=== PATIENT | female | born 1990 | race Caucasian/White ===

== ENCOUNTER 2019-01-22 13:30 | Observation (INO) | payer BC ==
[2019-01-22] MEDS ORDERED: MIDAZOLAM HCL 2 MG/2 ML INJ ONE (15:24)
[2019-01-22] MEDS ORDERED: PROPOFOL 200 MG/20 ML VIAL IV ONE (15:24)
[2019-01-22] MEDS ORDERED: LIDOCAINE 2% MPF 5 ML VIAL ONE (15:25)
[2019-01-22] MEDS ORDERED: GLYCOPYRROLATE 0.2 MG/ML SYR ONE ×3 (15:25→16:17)
[2019-01-22] MEDS ORDERED: FENTANYL CITR 250 MCG/5 ML ONE (15:25)
[2019-01-22] MEDS ORDERED: NEOSTIGMINE 1 MG/ML -10 ML VIAL ONE (15:26)
[2019-01-22] MEDS ORDERED: ONDANSETRON 4 MG/2 ML VIAL ONE (15:26)
[2019-01-22] MEDS ORDERED: CEFAZOLIN/SWI 1gm 1 GM/10 ML SYR ONE (15:31)
[2019-01-22] MEDS ORDERED: KETOROLAC 30 MG/ML INJ ONE (16:10)
[2019-01-22] MEDS ORDERED: ONDANSETRON 4 MG/2 ML VIAL IV PRN (16:12)
[2019-01-22] MEDS ORDERED: SODIUM CHLORIDE 0.9% 10ML INJ IV PRN (16:12)
[2019-01-22] MEDS ORDERED: BUPIVACAINE 0.5% PF 10 ML VIAL ONE (16:18)
--- OUTSIDE RECORDS SUMMARY | 2019-01-22 16:28 | XMS REPORT ---
:1990 Author Organization eClinicalWorks Care Team Providers Name Role Phone Debbie Owens Provider Role Unavailable Allergies No Known Allergies Problems Problem Type Condition Code Onset Dates Condition Status Problem Irritable bowel syndrome with both K58.2 Active constipation and diarrhea Problem Migraine with aura and without G43.109 Active status migrainosus, not intractable Problem Sleep disturbance G47.9 Active Assessment Acute UTI N39.[address] of the abdomen R93.5 Active Problem Acute UTI N39.0 Active Problem Neck pain M54.2 Active Problem Pelvic pressure in female R10.2 Active Problem Pain in extremity, unspecified M79.609 Active extremity Problem Acute right-sided low back pain M54.5 Active without sciatica Problem Abdominal pain, unspecified R10.9 Active abdominal location Medications Medication Code Code Instructions Start End Status Dosage System Date Date Zyrtec Allergy ND 83499442035 10 MG Orally Active 1 tablet Once a day Sumatriptan ND 15895585419 50 MG Orally October 14, Active 1 tablet Succinate Twice a day 2018 as needed Benadryl NDC 0 orally 1-2 Active 50mg times a day Topiramate ND 71115424427 100 MG Orally Active 1 tablet Once a day Results No Known Results Summary Purpose eClinicalWorks Submission
--- OUTSIDE RECORDS SUMMARY | 2019-01-22 16:28 | XMS REPORT ---
:1990 Author Organization eClinicalWorks Care Team Providers Name Role Phone Debbie Owens Provider Role Unavailable Allergies, Adverse Reactions, Alerts Substance Reaction Event Type N.K.D.A. Info Not Available Non Drug Allergy Problems Problem Type Condition Code Onset Dates Condition Status Problem Irritable bowel syndrome with both K58.2 Active constipation and diarrhea Problem Migraine with aura and without G43.109 Active status migrainosus, not intractable Problem Sleep disturbance G47.[address] of the abdomen R93.5 Active Problem Acute UTI N39.0 Active Problem Neck pain M54.2 Active Problem Pelvic pressure in female R10.2 Active Problem Pain in extremity, unspecified M79.609 Active extremity Problem Acute right-sided low back pain M54.5 Active without sciatica Problem Abdominal pain, unspecified R10.9 Active abdominal location Assessment Neck pain M54.2 Active Assessment Pain in extremity, unspecified M79.609 Active extremity Assessment Pelvic pressure in female R10.2 Active Assessment Acute UTI N39.0 Active Assessment Acute right-sided low back pain M54.5 Active without sciatica Assessment Abdominal pain, unspecified R10.9 Active abdominal location Assessment Abnormal CT of the abdomen R93.5 Active Medications Medication Code Code Instructions Start End Status Dosage System Date Date Zyrtec Allergy [facility] 13681846791 10 MG Orally Active 1 tablet Once a day Topiramate [facility] 65984940308 100 MG Orally Active 1 tablet Once a day Benadryl NDC 0 orally 1-2 Active 50mg times a day Ciprofloxacin HCl ND 49704838258 500 MG Orally Aug 27, Sep 06, Active 1 tablet every 12 hrs 2018 2018 Sumatriptan ND 80623073962 50 MG Orally September Active 1 tablet Succinate Twice a day 2017 as needed Results Name Result Date Reference Range Unit Abnormality Flag CULTURE, URINE, ROUTINE ----CULTURE, URINE, ROUTINE SEE NOTE [id number] Summary Purpose eClinicalWorks Submission
--- OUTSIDE RECORDS SUMMARY | 2019-01-22 16:28 | XMS REPORT ---
:1990 [facility] Team Providers Name Role Phone Debbie Owens Provider Role Unavailable Allergies, Adverse Reactions, Alerts Substance Reaction Event Type N.K.D.A. Info Not Available Non Drug Allergy Problems Problem Type Condition Code Onset Dates Condition Status Problem Acute right-sided low back pain M54.5 Active without sciatica Problem Pelvic pressure in female R10.2 Active Problem Pain in extremity, unspecified M79.609 Active extremity Problem Right sided abdominal pain R10.9 Active Assessment Diarrhea, unspecified type R19.7 Active Problem Abnormal urinalysis R82.90 Active Assessment Abnormal urinalysis R82.90 Active Assessment Depression screening Z13.31 Active Problem Abnormal abdominal CT scan R93.5 Active Problem Depression screening Z13.31 Active Problem Abdominal pain, unspecified R10.9 Active abdominal location Problem Nausea without vomiting R11.0 Active Problem Diarrhea, unspecified type R19.7 Active Assessment Right sided abdominal pain R10.9 Active Assessment Nausea without vomiting R11.0 Active Assessment Abnormal abdominal CT scan R93.5 Active Problem Migraine with aura and without G43.109 Active status migrainosus, not intractable Problem Abnormal CT of the abdomen R93.5 Active Problem Irritable bowel syndrome with both K58.2 Active constipation and diarrhea Problem Neck pain M54.2 Active Problem Sleep disturbance G47.9 Active Problem Acute UTI N39.0 Active Medications Medication Code Code Instructions Start End Status Dosage System Date Date Dicyclomine HCl ND 29320937718 20 MG Orally January 13January Active 1 tablet Four times a day 2018, as needed 2018 for stomach/f lank pain Zyrtec Allergy ND 41988302838 10 MG Orally Active 1 tablet Once a day Topiramate ND 57194614322 100 MG Orally Active 1 tablet Once a day Sumatriptan ND 14948868746 50 MG Orally October 14, Active 1 tablet Succinate Twice a day 2017 as needed Benadryl ND 0 orally 1-2 Active 50mg times a day Results Name Result Date Reference Range Unit Abnormality Flag URINALYSIS AUTO W/O SCOPE ----Bilirubin Negative 20190113 ----Urobilinogen (mg/dL) 0.2 E.U./dL 20190113 ----Ketones Negative 20190113 ----Glucose (mg/dL) Negative 20190113 ----Protein (mg/dL) 1+ 20190113 ----Specific [place] 1.015 20190113 ----Blood (Non-Hemolyzed) Negative 20190113 ----pH 7.5 20190113 ----Leukocytes 1+ 20190113 ----Nitrite Negative 20190113 TEST URINE ----RESULTS Negative 20190113 Summary Purpose eClinicalWorks Submission
--- OUTSIDE RECORDS SUMMARY | 2019-01-22 16:28 | XMS REPORT ---
:1990 Author Organization eClinicalWorks Care Team Providers Name Role Phone Graciela Debbie Provider Role Unavailable Allergies No Known Allergies [...] pain, unspecified R10.9 Active abdominal location Medications No Known Medications Results No Known Results Summary Purpose eClinicalWorks Submission
--- OUTSIDE RECORDS SUMMARY | 2019-01-22 16:29 | XMS REPORT ---
[...] Problem Right sided abdominal pain R10.9 Active Problem Abnormal urinalysis R82.90 Active Problem Abnormal abdominal CT scan R93.5 Active Problem Depression screening Z13.31 Active Problem Abdominal pain, unspecified R10.9 Active abdominal location Problem Nausea without vomiting R11.0 Active Problem Diarrhea, unspecified type R19.7 Active Problem Migraine with aura and without G43.109 Active status migrainosus, not intractable Problem Abnormal CT of the abdomen R93.5 Active Problem Irritable bowel syndrome with both K58.2 Active constipation and diarrhea Problem Neck pain M54.2 Active Problem Sleep disturbance G47.9 Active Problem Acute UTI N39.0 Active Medications No Known Medications Results No Known Results Summary Purpose [employer] Submission
[2019-01-22] MEDS ORDERED: MEPERIDINE HCL 50 MG/ML AMP ONE (16:40)
[2019-01-22] MEDS ORDERED: NA CHLORIDE 0.9% 1,000 ML ONE (16:51)
[2019-01-22] MEDS: NA CHLORIDE 0.9% 1,000 ML IV SCH (17:00)
--- NOTE | 2019-01-22 17:02 | OP ---
Date of Procedure: 01/22/2019 Surgeon: Rohan Ferrer MD Preoperative Diagnosis: Acute appendicitis. Postoperative Diagnosis: Acute appendicitis. Procedure: Laparoscopic appendectomy. Anesthesia: General plus local. Findings: Acute appendicitis. Also, uterine masses. Indications: This is a case of a 28-year-old patient, comes to us with chronic pain, but in the last 24 hours she developed right lower quadrant acute pain, diagnosed with acute appendicitis. Transfer red from another institution for emergent surgery. The benefits, alternatives, and risks of laparosc opic, possible open appendectomy fully explained to the patient, which include but are not limited to infection, bleeding, damage to adjacent structures, anesthesia complication, AR, and even . Evelyn vinson also understands this may not relieve the symptoms. She might need more than one surgical interven tion. She understood, signed the consent. Description Of Procedure: The patient was brought to the operating room, placed in supine position. Anesthesia was done without complication. A time-out was called. Abdominal area was prepped and dr aped in a sterile fashion. Marcaine 0.5% was injected for local anesthetic, followed by a sharp inci tiara of the skin in the infraumbilical region. Incision was carried down to fascia, which was opened under direct vision. Peritoneum was encountered, opened under direct vision. Vicryl #1 placed insi de the fascia. Judy trocar was carefully introduced. Pneumoperitoneum was obtained. I placed 2 m ore trocars, 5 mm each one of them, and suprapubic and left lower quadrant under direct visualization . This allowed me to introduce camera in the abdomen and visualized the area of the appendix, it loo ks like the half of the appendix is inflamed, the base of the appendix seems to be intact, so we crea franky a window in the base of the appendix, transected that with an Endo MARSHA 45 mm 3.5, and the mesoapp endix with Endo MARSHA 45 mm 2.5. Appendix removed from abdominal cavity using EndoCatch through the um bilical incision. The area was inspected once again after irrigation and suction. Stump is intact w ith no leakage and no bleeding. I have to mention that we inspected the area of the right side of th e colon too since the patient has chronic pain. We did not see any extraluminal masses, but we notice d several fibroid masses in the uterus, etiology of that is unknown, one of them is almost the size o f the uterus. We took several pictures for her to show to the senior warehouse clerk. Small bowel with no ext raluminal masses. At that moment, I proceeded to remove the trocars under direct vision. Deflated t he pneumoperitoneum. Closed the fascia with #1 Vicryl. Irrigated subcutaneous tissue, closed that w ith 3-0 chromic and skin with félix. Sponge count and instrument counts were correct. The patient tolerated the procedure well. The patient was sent to Recovery in stable condition. JOSE/NAYE Voice ID: [id number] Report ID: [id number]
[2019-01-22] MEDS ORDERED: CEFOXITIN 1 GM in NA CHLORIDE 0.9% 100 ML IVPB SCH (18:00)
[2019-01-22] MEDS: HYDROCODONE/APAP 7.5/325 MG TAB PO PRN (18:32)
[2019-01-22 18:51] VITALS: BMI 51.3
[2019-01-22] MEDS: CEFOXITIN/SWI 1gm 1 GM/10 ML SYR IVP SCH (18:52)
[2019-01-22] MEDS ORDERED: SUMATRIPTAN SUCCI 50 MG TAB PO PRN (18:56)
[2019-01-22] MEDS ORDERED: CEFOXITIN/SWI 1gm 1 GM/10 ML SYR IVP SCH (19:00)
[2019-01-22] MEDS: PROPRANOLOL HCL 40 MG TAB PO SCH (21:00)
[2019-01-22] MEDS: MORPHINE 2 MG/ML SYR IV PRN (21:14)
[2019-01-23] MEDS: MORPHINE 2 MG/ML SYR IV PRN ×3 (01:00→09:46)
[2019-01-23] MEDS: CEFOXITIN/SWI 1gm 1 GM/10 ML SYR IVP SCH ×2 (01:01→05:32)
[2019-01-23] MEDS: NA CHLORIDE 0.9% 1,000 ML IV SCH ×2 (03:00→13:00)
--- NOTE | 2019-01-23 03:04 | HP ---
Date of Admission: 01/22/2019 Diagnoses: Right lower quadrant pain intractable, acute appendicitis. History Of Present Illness: This is the case of a 28-year-old patient, comes with a history of abdom inal pain since last night on the right side associated with nausea, vomiting, and bloating. The pat demond was seen in [place] across the street, did the initial workup. Had a CT scan done showing acut e appendicitis and I was called for transferring this patient to our service and also immediate surge ry. She denies any dysuria, hematuria, hematochezia, or melena. Denies any recent traveling out of the country. Denies any family member sick at home. The patient states having abdominal pain in the right side for the last 6 months. She even have an appointment with a apparel pattern maker next month , but she has not been seen yet, but this pain got worse suddenly, and she decided to come to the ER and then the appendicitis was discovered. Past Medical History: Migraine. Medications: For migraines. Allergies: NONE. Surgeries: None. Social History: She does smoke. She does not drink alcohol. Review of Systems: Ten points, otherwise unremarkable. Physical Examination: General: The patient is awake and alert. HEENT: Pupils are equal and reactive, anicteric. Neck: Supple. Chest: Clear. Heart: S1, S2. Abdomen: Soft and depressible. The right lower quadrant tenderness with Rovsing sign and psoas sign positive. Breasts: Deferred. Pelvic: Deferred. Rectal: Deferred. Extremities: Good capillary refill. Neuro: Cranial nerves 2 through 12 grossly within normal limits. Laboratory Data: Blood work was done in [place] with a white count of 14.6, platelets of 389. Pregnan cy negative. She has a right upper quadrant ultrasound with no gallstones seen. Then she has a CAT scan of the abdomen and pelvis, shows acute appendicitis. Assessment: This is a 28-year-old patient with acute appendicitis, laparoscopic, possible open appen dectomy. Fully discussed with the patient with benefits, alternatives, and risks including but not l imited to infection, bleeding, damage to adjacent structures, anesthesia complication, negative appen matthew, myocardial infarction, and even . She also understands this may not relieve any symptoms. She might need more than one surgical intervention. She also understands that she should continue w ith the workup with the apparel pattern maker because may be that some other conditions in the colon is causing her chronic abdominal pain and the appendix not necessarily will take care of that pathology. She understood and she will keep her appointment and the OR was immediately called stat for surgery . JAYDA Voice ID: [id number]
[2019-01-23 04:18] VITALS: O2SAT 98
[2019-01-23 05:59] LABS: Urine Appearance CLEAR; Urine Bilirubin NEGATIVE (NEG); Urine Blood NEGATIVE (NEG); Urine Color YELLOW; Urine Glucose NEGATIVE (NEG); Urine Protein NEGATIVE (NEG); Urine Specific Gravity 1.015 (1.005-1.030); Urine Urobilinogen 0.2 mg/dL (0.2-1.0); Urine pH 6.5 (5.0-7.0)
[2019-01-23 06:00] LABS: Urine Microscopic Reflex ORDER UMIC
[2019-01-23 06:10] LABS: Absolute Lymphocytes (CBC) 1.4 K/uL (0.7-4.9); Basophils % 0.8 % (0-1.3); Eosinophils % 6.2 % (0-4.4); Hematocrit 32.2 % (36.0-45.0); Lymphocytes % 16.5 % (15.3-44.8); MPV 8.3 fL (7.6-11.3); Monocytes % 2.4 % (3.3-12.3); RBC Red Blood Cell Count 3.72 M/uL (3.86-4.86)
[2019-01-23 06:16] LABS: Potassium 3.7 mmol/L (3.5-5.1)
[2019-01-23 07:42] LABS: Urine Bacteria <20 /HPF (<20); Urine Culture Reflex Order NOT NEEDED; Urine RBC <5 /HPF (NONE SEEN)
[2019-01-23] MEDS: PROPRANOLOL HCL 40 MG TAB PO SCH (08:41)
[2019-01-23] MEDS ORDERED: PANTOPRAZOLE 40 MG INJ IVP SCH (09:00)
[2019-01-23] MEDS: HYDROCODONE/APAP 7.5/325 MG TAB PO PRN (12:23)
[2019-01-23 12:38] VITALS: BP 119/68; TEMP 97.8
--- NOTE | 2019-01-23 12:52 | P.DS ---
Admission Date: 01/22/19 Discharge Date: 01/23/19 Disposition: ROUTINE DISCHARGE Discharge Condition: GOOD Vital Signs/Physical Exam: Temp Pulse Resp BP Pulse Ox 97.8 F 59 20 119/68 99 01/23/19 12:00 01/23/19 12:00 01/23/19 12:00 01/23/19 12:00 01/23/19 12:00 General: Alert, Oriented x3, Cooperative HEENT: PERRLA, EOMI Neck: Supple Respiratory: Normal air movement Gastrointestinal: Soft and benign Musculoskeletal: No erythema, No tenderness, No warmth Integumentary: No erythema, No warmth, No cyanosis Laboratory Data at Discharge: WBC 8.3 K/uL (4.3-10.9) 01/23/19 05:38 Hgb 10.9 g/dL (12.0-15.0) L 01/23/19 05:38 Hct 32.2 % (36.0-45.0) L 01/23/19 05:38 Plt Count 268 K/uL (152-406) 01/23/19 05:38 Sodium 139 mmol/L (136-145) 01/23/19 05:38 Potassium 3.7 mmol/L (3.5-5.1) 01/23/19 05:38 BUN 8 mg/dL (7-18) 01/23/19 05:38 Creatinine 1.33 mg/dL (0.55-1.3) H 01/23/19 05:38 Glucose 104 mg/dL (74-106) 01/23/19 05:38 Home Medications: Propranolol [Inderal] 40 mg PO BID 01/22/19 SUMAtriptan succinate [Sumatriptan Succinate] 25 mg PO ONCE PRN 01/22/19 Amox/Clavulanate [Augmentin 875-125 Tab] 1 each PO BID #12 tab 01/23/19 Codeine/APAP [Tylenol W/Codeine #3 tab] 1 tab PO Q4HP PRN #30 tab 01/23/19 New Medications: Amox/Clavulanate [Augmentin 875-125 Tab] 1 each PO BID #12 tab Codeine/APAP [Tylenol W/Codeine #3 tab] 1 tab PO Q4HP PRN #30 tab PRN Reason: Pain Patient Discharge Instructions: KEep area dry for 24h then may remove dressing and shower. Diet: AHA Activity: No lifting more than 10 lbs Followup: Rohan Ferrer MD [ACTIVE - CAN ADMIT] - 1 Week
[2019-01-23] MEDS ORDERED: CEFOXITIN/SWI 1gm 1 GM/10 ML SYR IVP SCH (19:00)
== END 2019-01-23 14:36 | disposition home or self-care (01) ==
LOC: 4TH 13:50
PROVIDERS: ADMIT Surgery; ATTEND Surgery
PROC: 0DTJ4ZZ Resection of Appendix, Percutaneous Endoscopic Approach (ICD-10-PCS; principal; 2019-01-22 13:30)
DX: K35.80 Unspecified acute appendicitis (principal); D25.9 Leiomyoma of uterus, unspecified
CPT/HCPCS: 36415; 80048; 81003; 81015; 85025; 88304; C9113; G0378; J0690; J2175; J2250; J2270; J2405; J2704; J2710; J3010; J7030

== ENCOUNTER 2019-04-06 06:20 | Day surgery (SDC) | payer BC ==
[2019-03-30 16:40] LABS: Basophils % 0.5 % (0-1.3); Hematocrit 42.8 % (36.0-45.0); Lymphocytes % 27.5 % (15.3-44.8); MPV 9.4 fL (7.6-11.3); RBC Red Blood Cell Count 4.88 M/uL (3.86-4.86)
[2019-03-30 17:15] LABS: Urine Appearance CLOUDY; Urine Bilirubin NEGATIVE (NEG); Urine Blood 2+ (NEG); Urine Color YELLOW; Urine Glucose NEGATIVE (NEG); Urine Protein TRACE (NEG); Urine Specific Gravity 1.025 (1.005-1.030); Urine Urobilinogen 0.2 mg/dL (0.2-1.0); Urine pH 5.5 (5.0-7.0)
[2019-03-30 17:46] LABS: Urine Microscopic Reflex ORDER UMIC
[2019-03-30 17:47] LABS: Urine Bacteria 20-50 /HPF (<20); Urine Culture Reflex Order REFLEXED; Urine RBC <5 /HPF (NONE SEEN)
--- OUTSIDE RECORDS SUMMARY | 2019-04-06 06:26 | XMS REPORT ---
[...] Dosage System Date Date Zyrtec Allergy ND 98204789815 10 MG Orally Active 1 tablet Once a day Sumatriptan ND 05820569708 50 MG Orally October 14, Active 1 tablet Succinate Twice a day 2018 as needed Benadryl NDC 0 orally 1-2 Active 50mg times a day Topiramate ND 86655392109 100 MG Orally Active 1 tablet Once a day Results No Known Results Summary Purpose eClinicalWorks Submission
--- OUTSIDE RECORDS SUMMARY | 2019-04-06 06:26 | XMS REPORT ---
[...] Medications Results No Known Results Summary Purpose [employer] Submission
--- OUTSIDE RECORDS SUMMARY | 2019-04-06 06:26 | XMS REPORT ---
[...] Acute UTI N39.0 Active Medications Medication Code System Code Instructions Start Date End Date Status Dosage Zofran [facility] 47066937800 4 MG Orally q 4-6 January 22, Active 1 tablet hours prn nausea 2019 Results No Known Results Summary Purpose [employer] Submission
--- OUTSIDE RECORDS SUMMARY | 2019-04-06 06:26 | XMS REPORT ---
:1990 [facility] Team Providers Name Role Phone Debbie [...] Dosage System Date Date Dicyclomine HCl ND 76894083536 20 MG Orally January 13January Active 1 tablet Four times a day 2018, as needed 2018 for stomach/f lank pain Zyrtec Allergy ND 13045241298 10 MG Orally Active 1 tablet Once a day Topiramate ND 50342902595 100 MG Orally Active 1 tablet Once a day Sumatriptan ND 80712889104 50 MG Orally October 14, Active 1 tablet Succinate Twice a day 2017 as needed Benadryl ND 0 orally 1-2 Active 50mg times a day Results Name Result Date Reference Range Unit Abnormality Flag URINALYSIS AUTO W/O SCOPE ----Bilirubin Negative 20190113 ----Urobilinogen (mg/dL) 0.2 E.U./dL 20190113 ----Ketones Negative 20190113 ----Glucose (mg/dL) Negative 20190113 ----Protein (mg/dL) 1+ 20190113 ----Specific [place] 1.015 20190113 ----Blood (Non-Hemolyzed) Negative 20190113 ----pH 7.5 20190113 ----Leukocytes 1+ 20190113 ----Nitrite Negative 20190113 TEST URINE ----RESULTS Negative 20190113 Summary Purpose eClinicalWorks Submission
--- OUTSIDE RECORDS SUMMARY | 2019-04-06 06:26 | XMS REPORT ---
[...] Problem Diarrhea, unspecified type R19.7 Active Assessment URI, acute J06.9 Active Assessment Acute pharyngitis, unspecified J02.9 Active etiology Problem Migraine with aura and without G43.109 Active status migrainosus, not intractable Problem Abnormal CT of the abdomen R93.5 Active Problem Irritable bowel syndrome with both K58.2 Active constipation and diarrhea Problem Neck pain M54.2 Active Problem Sleep disturbance G47.9 Active Problem Acute UTI N39.0 Active Medications Medication Code Code Instructions Start End Status Dosage System Date Date Sumatriptan [facility] 08900964806 50 MG Orally September Active 1 tablet Succinate Twice a day 2017 as needed Zyrtec Allergy [facility] 26959089067 10 MG Orally Active 1 tablet Once a day Zofran ND 78363846189 4 MG Orally q January 22, Active 1 tablet 4-6 hours prn 2018 nausea Solifenacin [facility] [address]-79 5 MG Orally Active 1 tablet Succinate Once a day Benadryl NDC 0 orally 1-2 Active 50mg times a day Topiramate [facility] 52176324039 100 MG Orally Active 1 tablet Once a day Results No Known Results Summary Purpose eClinicalWorks Submission
--- OUTSIDE RECORDS SUMMARY | 2019-04-06 06:26 | XMS REPORT ---
[...] Status Dosage System Date Date Zyrtec Allergy [facility] 11640205872 10 MG Orally Active 1 tablet Once a day Topiramate [facility] 33209677982 100 MG Orally Active 1 tablet Once a day Benadryl NDC 0 orally 1-2 Active 50mg times a day Ciprofloxacin HCl ND 89258861112 500 MG Orally Aug 27, Sep 06, Active 1 tablet every 12 hrs 2018 2018 Sumatriptan ND 41084531192 50 MG Orally September Active 1 tablet Succinate Twice a day 2017 as needed Results Name Result Date Reference Range Unit Abnormality Flag CULTURE, URINE, ROUTINE ----CULTURE, URINE, ROUTINE SEE NOTE [id number] Summary Purpose eClinicalWorks Submission
[2019-04-06] MEDS ORDERED: Ringers Lactate 1,000 ML IV ONE ×3 (06:41→10:13)
[2019-04-06] MEDS ORDERED: SCOPOLAMINE HYDROBROMIDE PATCH TD ONE (06:41)
[2019-04-06 06:42] LABS: Specific Gravity 1.025 (1.005-1.030)
[2019-04-06] MEDS ORDERED: PROPOFOL 200 MG/20 ML VIAL IV ONE (07:13)
[2019-04-06] MEDS ORDERED: MIDAZOLAM HCL 2 MG/2 ML INJ ONE (07:13)
[2019-04-06] MEDS ORDERED: ROCURONIUM 50 MG/5 ML VIAL IV ONE ×2 (07:13→08:45)
[2019-04-06] MEDS ORDERED: FENTANYL CITR 250 MCG/5 ML ONE (07:13)
[2019-04-06] MEDS ORDERED: dexAMETHasone 10 MG/ML VIAL ONE (07:13)
[2019-04-06] MEDS ORDERED: LIDOCAINE 2% MPF 5 ML VIAL ONE ×2 (07:13→09:54)
[2019-04-06] MEDS ORDERED: ONDANSETRON 4 MG/2 ML VIAL ONE (07:14)
[2019-04-06] MEDS ORDERED: NA CHLORIDE 0.9% 1,000 ML ONE (07:14)
[2019-04-06] MEDS ORDERED: NA CHLORIDE 0.9% 0 ML IV ONE (07:24)
[2019-04-06] MEDS ORDERED: VASOPRESSIN 20 UNIT/ML VIAL ONE (07:25)
[2019-04-06] MEDS ORDERED: NS 0.9% VIAL 20 ML ONE (08:38)
[2019-04-06] MEDS: BUPIVACAINE 0.25% PF 10 ML VIAL ONE ×2 (09:10→09:30)
[2019-04-06] MEDS: METHYLENE BLUE 0.5% 10 ML AMP ONE ×2 (09:19→09:20)
[2019-04-06] MEDS ORDERED: KETOROLAC 30 MG/ML INJ ONE (09:28)
[2019-04-06] MEDS ORDERED: GLYCOPYRROLATE 0.2 MG/ML SYR ONE ×2 (09:40→09:46)
[2019-04-06] MEDS ORDERED: NEOSTIGMINE 1 MG/ML -10 ML VIAL ONE (09:41)
[2019-04-06] MEDS ORDERED: MORPHINE 10 MG/ML VIAL ONE (10:06)
[2019-04-06] MEDS ORDERED: MORPHINE 4 MG/ML SYR ONE (10:44)
[2019-04-06] MEDS ORDERED: HYDROCODONE/APAP 5/325 MG TAB ONE (11:24)
[2019-04-06] MEDS ORDERED: HYDROCODONE/APAP 5/325 MG TAB PO ONE (11:24)
[2019-04-06 11:36] VITALS: TEMP 98
[2019-04-06 12:21] VITALS: BP 120/78; O2SAT 98
== END 2019-04-06 12:20 | disposition home or self-care (01) ==
LOC: OR 06:20
PROVIDERS: ATTEND Obstetrics & Gynecology
PROC: 3E1P78X Irrigation of Female Reproductive using Irrigating Substance, Via Natural or Artificial Opening, Diagnostic (ICD-10-PCS; 2019-04-06)
PROC: 0UB94ZZ Excision of Uterus, Percutaneous Endoscopic Approach (ICD-10-PCS; 2019-04-06)
PROC: 0UBF4ZZ Excision of Cul-de-sac, Percutaneous Endoscopic Approach (ICD-10-PCS; 2019-04-06)
PROC: 0DBW4ZZ Excision of Peritoneum, Percutaneous Endoscopic Approach (ICD-10-PCS; 2019-04-06)
PROC: 0UJD8ZZ Inspection of Uterus and Cervix, Via Natural or Artificial Opening Endoscopic (ICD-10-PCS; principal; 2019-04-06 07:30)
DX: D25.9 Leiomyoma of uterus, unspecified (principal); N80.3 Endometriosis of pelvic peritoneum; R10.2 Pelvic and perineal pain; N83.291 Other ovarian cyst, right side; N32.81 Overactive bladder; R35.0 Frequency of micturition; G43.009 Migraine without aura, not intractable, without status migrainosus; Z80.3 Family history of malignant neoplasm of breast; Z83.3 Family history of diabetes mellitus
CPT/HCPCS: 87088; 85025; 87086; 36415; 86900; 86850; 81025; 86901; 88305; 58555; 58350; 58545; 58662; J2704; J2710; J2250; J3010; J1100; J7030; J2405; 81003; 81015

== ENCOUNTER → 2023-10-20 | Day surgery (SDC) | payer BC ==
[2023-10-17 15:22] LABS: Absolute Basophils 0.1 K/uL (0-0.5); Absolute Eosinophils 0.2 K/uL (0-0.5); Absolute Lymphocytes (CBC) 1.8 K/uL (0.7-4.9); Absolute Monocytes 0.5 K/uL (0.1-1.3); Basophils % 0.6 % (0-1.3); Eosinophils % 1.8 % (0-4.4); Hematocrit 35.9 % (36.0-45.0); Hemoglobin 11.9 g/dL (12.0-15.0); MCH 27.3 pg (27.0-35.0); MCHC 33.2 g/dL (32.0-36.0); MCV 82.4 fL (80-100); MPV 7.8 fL (7.6-11.3); Monocytes % 6.2 % (3.3-12.3); Neutrophils % 70.4 % (41.7-73.7); Platelets 385 thou/uL (152-406); RBC Red Blood Cell Count 4.36 M/uL (3.86-4.86); Red Cell Distribution Width 14.5 % (12.1-15.2)
[2023-10-17 15:35] LABS: ALT/SGPT 25 U/L (13-56); AST/SGOT 13 U/L (15-37); Albumin 3.3 g/dL (3.4-5.0); Albumin/Globulin Ratio 0.7 (1.1-1.8); Alkaline Phosphatase 79 U/L (45-117); Anion Gap 8.6 mEq/L (5.0-15.0); BUN Blood Urea Nitrogen 15 mg/dL (7-18); Bicarbonate 29 mEq/L (21-32); Bilirubin Total 0.3 mg/dL (0.2-1.0); Globulin 4.5 g/dL (2.3-3.5); Glomerular Filtration Rate 100 ml/min (=/>90); Glucose Level 92 mg/dL (74-106); Lipase 35 U/L (13-75); Potassium 3.6 mEq/L (3.5-5.1); Protein, Total 7.8 g/dL (6.4-8.2); Sodium Level 137 mEq/L (136-145)
[2023-10-17 15:40] LABS: Bilirubin Direct < 0.1 mg/dL (0-0.2); Bilirubin Indirect, Calculated ND mg/dL (0.2-0.8)
[~2023-10-20] MED LIST: FENTANYL CITR 100 MCG/2 ML ONE; GLYCOPYRROLATE 0.2 MG/ML SYR ONE; KETOROLAC 30 MG/ML INJ ONE; LIDOCAINE 2% MPF 5 ML VIAL ONE; MIDAZOLAM HCL 2 MG/2 ML INJ ONE; Mastisol Adhesive Liq ONE; NEOSTIGMINE 1 MG/ML -10 ML VIAL ONE; NS 0.9% VIAL 10 ML ONE; ONDANSETRON 4 MG/2 ML VIAL ONE; ROCURONIUM 50 MG/5 ML VIAL IV ONE; dexAMETHasone 10 MG/ML VIAL ONE; propofoL 200 MG/20 ML VIAL IV ONE
[2023-10-20] MEDS: Ringers Lactate 1,000 ML IV ONE (07:45)
[2023-10-20] MEDS: CEFOXITIN SODIUM 1 GM/VIAL ONE (08:04)
[2023-10-20 08:50] LABS: Urine Specific Gravity/Preg >1.030 (1.005-1.030)
--- NOTE | 2023-10-20 09:21 | P.BOP ---
Preoperative diagnosis: acute cholecystitis, symptomatic cholelithiasis Postoperative diagnosis: same Primary procedure: Laparoscopic cholecystectomy Type Copy Examiner: Karin Zapata (Joel) Estimated blood loss: <10cc Specimen: gb Findings: as above Anesthesia: General Complications: None Transferred to: Recovery Room Condition: Good
[2023-10-20] MEDS: HYDROMORPHONE HCL 1 MG/ML INJ ONE (10:01)
[2023-10-20 11:41] VITALS: BP 128/81; TEMP 97.3; O2SAT 100
--- NOTE | 2023-10-20 13:52 | OP ---
Date of Procedure: 10/20/2023 Surgeon: Rohan Ferrer MD Director Of Student Affairs: GARRET Atkinson. Preoperative Diagnosis: Acute cholecystitis, symptomatic cholelithiasis. Postoperative Diagnosis: Acute cholecystitis, symptomatic cholelithiasis. Procedure: Laparoscopic cholecystectomy. Estimated Blood Loss: Less than 10 mL. Specimen: Gallbladder. Anesthesia: General plus local. Indications For Procedure: This is the case of a 33-year-old patient who comes to us with above diag noses. Fully explained the benefits, alternatives, and risks of laparoscopic possible open cholecyst ectomy, which include, but not limited to infection, bleeding, damage to adjacent structures, anesthe hadley complication, choledocholithiasis, bile leak, pancreatitis, [place], and even . She also underst ands this may not relieve symptoms. She might need more than one surgical intervention. She underst ood, signed a consent. Description Of Procedure: The patient was brought to the operating room, placed on supine position. Anesthesia was done without complication. Abdominal area was prepped and draped in a sterile fashio n. Marcaine 0.5% was injected for local anesthetic followed by sharp incision of the skin in the inf raumbilical region. Incision was carried down to fascia, which was opened under direct vision. Nano toneum was encountered, opened under direct vision. Vicryl #1 placed inside the fascia. Judy troc ar was carefully introduced. No bleeding was obtained. I placed 3 more trocars, 5 mm each one of th em, 1 in the epigastric area, 2 in the right upper quadrant using the same technique, which consisted of local anesthetic, sharp incision of the skin, introduction of the trocars under direct vision. T his allowed me to put a grasper in the fundus of the gallbladder, another grasper in the infundibulum , retracted the gallbladder in the inferolateral fashion exposing the triangle of Calot, obtaining cr itical view. Cystic duct and cystic artery were clearly isolated, freed circumferentially, and a con nection between those and the gallbladder were clearly identified. I proceeded to ligate those by us ing at least 3 clips proximal, 1 clip distal, ligation in the middle. Same was done with the cystic artery. No bile leak. No bleeding. The gallbladder was removed from liver using Bovie cauterizer a nd removed from abdominal cavity using EndoCatch through the umbilical incision. Area was inspected once again. No bile leak. No bleeding. At that moment, I proceeded to remove the trocars under dir ect vision, deflated pneumoperitoneum, closed the fascia with #1 Vicryl, irrigated subcutaneous tissu e, closed that with 3-0 chromic and the skin in a subcuticular fashion with 3-0 chromic. Sponge coun ts and instrument counts were correct. The patient tolerated the procedure well. The patient sent t o Recovery in stable condition. Condition: Stable. Disposition: Home. Activity: As tolerated. No heavy lifting. Follow up in my office in 1 week. Call for appointment [phone]. Keep area dry for 48 hours, then may shower. Keep Steri-Strips intact. JOSE/NAYE Voice ID: [id number] Report ID: [id number]
== END | disposition home or self-care (01) ==
LOC: OR 07:17
PROVIDERS: ATTEND Surgery
PROC: 0FT44ZZ Resection of Gallbladder, Percutaneous Endoscopic Approach (ICD-10-PCS; principal; 2023-10-20 08:30)
DX: K80.10 Calculus of gallbladder with chronic cholecystitis without obstruction (principal); E03.9 Hypothyroidism, unspecified
CPT/HCPCS: 85025; 80048; 36415; 81025; 80076; 88304; 83690; 47562; A4216; J2704; J2710; J2001; J2250; J3010; J1100; J1170; J0694; J2405; J7120

== ENCOUNTER 2023-10-30 16:24 | Emergency (ER) | payer BC ==
--- OUTSIDE RECORDS SUMMARY | 2023-10-30 16:27 | XMS REPORT | Clinical Summary ---
Author Name Unknown Organization [facility] Address [address] [place] [place] [address] Care Team Providers Care Parking Enforcement Officer Name Role Phone Jeffrey Bauer MD Unavailable Lizeth Brown APRN Primary Care Provider [phone]- [phone] Allergies No known active allergies Medications Medication Sig Dispensed Refills Start Date End Date Status levothyroxine (SYNTHROID, LEVOTHROID) 50 mcg tablet Take 1 tablet (50 mcg) by mouth daily. 0 Active naltrexone (DEPADE) 50 mg tablet Take 0.5 tablets (25 mg) by mouth twice daily. 0 Active buPROPion (WELLBUTRIN SR) 150 mg 12 hr tablet Take 1 tablet (150 mg) by mouth twice daily. 0 02/13/2023 Active cetirizine 10 mg cap Take 1 capsule by mouth daily. 0 Active norethindrone (ORTHO MICRONOR) 0.35 mg tablet Take 1 tablet (0.35 mg) by mouth daily. 0 09/05/2023 Active Active Problems Problem Noted Date Diagnosed Date Renal mass 09/16/2023 Encounters Date Type Department Care Team Description 10/03/2023 Telephone Internal Medicine Center [facility] [facility], 9th [place] [address] Stef Campos, NANCY Cholelithiasis 10/03/2023 Telephone Internal Medicine Center [address] [facility], 9th [place] [address] Mariah Lyman RN 09/23/2023 Telephone Internal Medicine Center [address] [place] [address], 9th [place] [address] Lizeth Brown APRN 09/23/2023 Orders Only Internal Medicine Center [address] [place] [address], 9th [place] [address] Lizeth Brown APRN 09/16/2023 8:05 PM [employer] Ancillary Procedure Image Library [address] [place] [id number] Lizeth Brown, CMV DRIVER Renal mass 09/16/2023 8:00 PM [employer] Ancillary Procedure Image Library [address] [place] [address] Lizeth Brown, EMELIA Cancer 09/16/2023 12:30 PM [employer] - 09/16/2023 11:59 PM [employer] Hospital Encounter Diagnostic Laboratory Center [address] [place] [address], [facility] [place] [address] Lizeth Brown, CMV DRIVER Renal mass Discharge Disposition: Home 09/16/2023 11:00 AM [employer] Office Visit Internal Medicine Center [address] [place] [address], 9th [place] [address] Donal Waldron, Lizeth Person, EMELIA Renal mass (Primary Dx) 09/16/2023 10:00 AM [employer] NPR [facility] PATIENT ACCESS Lizeth Brown APRN 09/16/2023 Travel 09/08/2023 Travel 09/08/2023 Telephone [facility] PATIENT ACCESS Amarilis Zamarripa RN after 10/30/2022 Immunizations Name Administration Dates Next Due Influenza TIV (IM) 08/09/2023 Pfizer COVID-19 Vaccine, 202 -2023 Formula, 12+ y.o. (30 mcg/0.3 mL) 08/09/2023 Surgical History Surgery Date Site/Laterality Comments APPENDECTOMY 12/2018 MYOMECTOMY 07/28/2018 - 07/27/2019 SECTION, CLASSIC 07/28/2021 - 07/27/2022 Medical History Medical History Date Comments Migraine 2008 Gallstone 08/2023 Uterine leiomyoma 2019 Blood transfusion, without reported diagnosis De c 2021 Hypothyroidism Family History Medical History Relation Name Comments Lung cancer Maternal Grandfather Marshall Sanz COPD , lung cancer Breast cancer Maternal Grandmother Lenore Sanz Diagn osed in 1989, 2nd breast diagnosed in 2001 Skin cancer Maternal Grandmother Lenore Sanz Face a nd arms - diagnosed in 2017 Kidney cancer Maternal Uncle Barak Sanz Diagnose d 2022 -Other cancer Mother Terra Tim Essential Th rombocythaemia - diagnosed in 2015 -Other cancer Paternal Grandfather Garcia Mendoza Jr. Relation Name Status Comments Maternal Grandfather Marshall Sanz Maternal Grandmother Lenore Sanz Maternal Uncle Barak Sanz Mother Terra Tim Paternal Grandfather Garcia Mendoza Jr. Social History Tobacco Use Types Packs/Day Years Used Date Smoking Tobacco: Never Passive Smoke Exposure: Past Smokeless Tobacco: Never Tobacco Cessation:Counseling Given: No Alcohol Use Standard Drinks/Week Comments Not Currently 0 (1 standard drink = 0.6 oz pur e alcohol) AUDIT-C Answer Date Recorded Q1: How often do you have a drink containing alcohol? Never 09/16/2023 Q2: How many drinks containi ng alcohol do you have on a typical day when you are drinking? Patient does not drink Q3: How often do you have si x or more drinks on one occasion? Never 09/16/2023 Sex and Gender Information Value Date Recorded Sex Assigned at Female 09/09/2023 6:09 PM [employer] Gender Identity Female 09/09/2023 6:09 PM [employer] Sexual Orientation Straight 09/09/2023 6: 09 PM [employer] Job Start Date Occupation Industry Not on file Not on file Not on file Obstetrics History Last Filed Vital Signs Vital Sign Reading Time Taken Comments Blood Pressure 150/91 09/16/2023 10:52 AM [employer] Pulse 84 09/16/2023 10:52 AM [employer] Temperature 36.9 C (98.4 F) 09/16/2023 1 0:52 AM [employer] Respiratory Rate 16 09/16/2023 10:5 2 AM [employer] Oxygen Saturation 96% 09/16/2023 10: 52 AM [employer] Inhaled Oxygen Concentration - - Weight 95.6 kg (210 lb 12.2 oz) 024 10:54 AM [employer] Height 160.5 cm (5' 3.19") 09/16/2023 1 0:54 AM [employer] Body Mass Index 37.11 09/16/2023 10:54 AM [employer] Plan of Treatment Health Maintenance Due Date Last Done Comments COVID-19 Vaccine Completed 08/09/2023 Influenza Vaccine Completed 08/09/2023 Procedures Procedure Name Priority Date/Time Associated Diagnosis Comments URINALYSIS MICROSCOPIC EXAM Routine 09/16/2023 12:47 PM [employer] Renal mass .CBC Routine 09/16/2023 12:47 PM [employer] Renal mass URINALYSIS WITH MICROSCOPIC IF INDICATED Routine 09/16/2023 12:47 PM [employer] Renal mass HEPATITIS B SURFACE ANTIBODY Routine 09/16/2023 12:47 PM [employer] Renal mass HEPATITIS B CORE ANTIBODY Routine 09/16/2023 12:47 PM [employer] Renal mass HEPATITIS C VIRUS ANTIBODY Routine 09/16/2023 12:47 PM [employer] Renal mass HEPATIC FUNCTION PANEL Routine 12:47 PM [employer] Renal mass COMPLETE BLOOD COUNT W/ DIFFERENTIAL Routine 09/16/2023 12:47 PM [employer] Renal mass LACTATE DEHYDROGENASE Routine 09/16/2023 12:47 PM [employer] Renal mass MAGNESIUM LEVEL Routine 09/16/2023 12:47 PM [employer] Renal mass PHOSPHORUS LEVEL Routine 09/16/2023 12:4 7 PM [employer] Renal mass CALCIUM LEVEL Routine 09/16/2023 12:47 PM [employer] Renal mass GLUCOSE, RANDOM Routine 09/16/2023 12:47 PM [employer] Renal mass CREATININE Routine 09/16/2023 12:47 PM [employer] Renal mass BLOOD UREA NITROGEN Routine 09/16/2023 1 2:47 PM [employer] Renal mass ELECTROLYTE PANEL Routine 09/16/2023 12: 47 PM [employer] Renal mass OSI MRI ABDOMEN Routine 08/28/2023 12:46 PM [employer] Renal mass after 10/30/2022 Results * (ABNORMAL) Urinalysis Microscopic Exam (09/16/2023 12:47 PM [employer]) Urine Mucous Not Seen Not Seen, Trace /HPF 09/16/2023 2:26 PM [employer] [facility] Urine Bacteria Not Seen Not Seen /HPF 09/16/2023 2:26 PM [employer] [facility] Urine Squamous Epithelial Cells OCC Not Seen, OCC, Rare /HPF 09/16/2023 2:26 PM [employer] [facility] Urine WBC 7(H) <=2 /HPF 09/16/2023 2:26 PM [employer] [facility] Urine RBC 2 <=2 /HPF 09/16/2023 2:26 PM [employer] [facility] Urine Voided urine specimen / Unknown Non-blood Collection / Unknown 09/16/2023 12:47 PM [employer] 09/16/2023 12:58 PM [employer] Lizeth Brown CMV DRIVER LAB BLOOD ORDERABL ES [facility] Unless otherwise noted, all lab tests performed by: Division of Pathology and Laboratory Medicine [address] [place] [id number] * Glucose, Random (09/16/2023 12:47 PM [employer]) Glucose Random 96 70 - 199 mg/dL 09/16/2023 1:40 PM [employer] [facility] Blood Peripheral blood specimen / Unknown Venipuncture / Unknown 09/16/2023 12:47 PM [employer] 09/16/2023 12:59 PM [employer] Narrative [facility] - 09/16/2023 1:40 PM [employer] Effective 02/21/16, the glucose reference intervals have been updated based on [place] [employer] guidelines (Standards of Medical Care in Diabetes 2016. Diabetes Care 2016; 39: S13-S22). Fasting blood glucose: Normal: 70-99 mg/dL Impaired fasting glucose (increased risk for diabetes or pre-diabetes): 100-125 mg/dL Diabetes mellitus: >/=126 mg/dL Random blood glucose: Normal: 70-199 mg/dL Note: Random glucose >100 mg/dL is associated with increased risk for diabetes Lizeth Brown APRN LAB BLOOD ORDERABL ES [facility] Unless otherwise noted, all lab tests performed by: Division of Pathology and Laboratory Medicine [address] [place] [phone] * .CBC (09/16/2023 12:47 PM [employer]) White Blood Cell 8.6 4.1 - 10.5 K/uL 09/16/2023 1:19 PM [facility] Red Blood Cell 4.71 3.99 - 5.46 M/uL 09/16/2023 1:19 PM [facility] Hemoglobin 12.7 12.2 - 15.3 g/dL 09/16/2023 1:19 PM [facility] Hematocrit 40.0 36.4 - 46.8 % 09/16/2023 1:19 PM [facility] Mean Cell Volume 85 82 - 99 fL 09/16/19 24 1:19 PM [facility] Mean Cell Hemoglobin 27.0 26.6 - 33.2 pg 09/16/2023 1:19 PM [facility] Mean Cell Hemoglobin Concentration 31.8 31.1 - 35.2 g/dL 09/16/2023 1:19 PM [facility] RDW-SD 42.1 37.5 - 49.7 fL 09/16/2023 1:19 PM [facility] Red Cell Diameter Width 13.4 11.6 - 15.5 % 09/16/2023 1:19 PM [facility] Platelet 377 160 - 397 K/uL 09/16/2023 1:19 PM [facility] Mean Platelet Volume 9.8 9.1 - 12.6 fL 09/16/2023 1:19 PM [facility] INRBC 0.0 0.0 - 0.1 /100 WBC 09/16/2023 1:19 PM [facility] Comment: The INRBC (instrument NRBC) value reflects the enumeration of nucleated red blood cells contained in a 200uL sample of whole blood analyzed by the instrument. This value may differ from the NRBC value reported in a manual differential, which is based on a 100 cell differential. Neutrophil % 72.6 43.2 - 72.7 % 09/16/2023 1:19 PM [facility] Lymphocyte % 18.5 16.8 - 46.2 % 09/16/2023 1:19 PM [facility] Monocyte % 6.7 5.1 - 12.5 % 09/16/2023 1:19 PM [facility] Eosinophil % 1.4 0.4 - 6.3 % 09/16/2023 1:19 PM [facility] Basophil % 0.5 0.2 - 1.4 % 09/16/2023 1:19 PM [facility] IGRE % 0.3 0.1 - 1.5 % 09/16/2023 1:19 PM [facility] Comment:The IGRE% includes M etamyelocytes, Myelocytes and Promyelocytes. Neutrophil Abs 6.26 1.95 - 7.25 K/uL 09/16/2023 1:19 PM [facility] Lymphocyte Abs 1.60 1.01 - 3.24 K/uL 09/16/2023 1:19 PM [facility] Monocyte Abs 0.58 0.24 - 0.85 K/uL 09/16/2023 1:19 PM [facility] Eosinophil Abs 0.12 0.02 - 0.50 K/uL 09/16/2023 1:19 PM [facility] Basophil Abs 0.04 0.02 - 0.09 K/uL 09/16/2023 1:19 PM [facility] IG Abs 0.03 0.01 - 0.12 K/uL 09/16/2023 1:19 PM [facility] Blood Peripheral blood specimen / Unknown Venipuncture / Unknown 09/16/2023 12:47 PM [employer] 09/16/2023 12:59 PM [employer] Lizeth Brown APRN LAB BLOOD ORDERABL ES Performing Organization Address [facility] Co de Phone Number [facility] Unless otherwise noted, all lab tests performed by: Division of Pathology and Laboratory Medicine [address] [place] [phone] * Hepatitis C Virus Antibody (09/16/2023 12:47 PM [employer]) Pathologist [facility] HCVAb. Non Reactive Non Reactive 09/16/2023 2:18 PM [employer] [facility] Blood Peripheral blood specimen / Unknown Venipuncture / Unknown 09/16/2023 12:47 PM [employer] 09/16/2023 12:59 PM [employer] Narrative [facility] - 09/16/2023 2:18 PM [employer] Antibody detection in the immunocompromised and immunosuppressed population may be delayed or absent entirely. Therefore serial testing, correlation with other clinical findings, and supplemental testing (if available) should be taken into consideration when interpreting the results. Lizeth Brown APRN LAB BLOOD ORDERABL ES Performing Organization Address [facility] de Phone Number [facility] Unless otherwise noted, all lab tests performed by: Division of Pathology and Laboratory Medicine [address] [place] [id number] * Hepatitis B Total Ig Core Ab (SCREENING) (anti-HBc total Ig; HBcAb total Ig) (09/16/2023 12:47 PM [employer]) [facility] HBcAb. Non Reactive Non Reactive 09/16/2023 2:17 PM [employer] [facility] Blood Peripheral blood specimen / Unknown Venipuncture / Unknown 09/16/2023 12:47 PM [employer] 09/16/2023 12:59 PM [employer] Lizeth Brown APRN LAB BLOOD ORDERABL ES Performing Organization Address City/[facility]/ZIP Co de Phone Number [facility] Unless otherwise noted, all lab tests performed by: Division of Pathology and Laboratory Medicine [address] [place] [phone] * Hepatic Function Panel (09/16/2023 12:47 PM [employer]) Bilirubin Total <0.3 <=1.2 mg/dL 09/16/2023 1:40 PM [employer] [facility] Comment: Direct and indirect bilirubin will not be reported when Total bilirubin result is <0.3 mg/dL Indocyanine Green (ICG) may cause falsely elevated bilirubin results. Total and direct bilirubin must not be measured from samples containing indocyanine green. False elevation of total bilirubin can be seen in patients with IgG concentrations above 28 g/L. Bilirubin Direct 09/16/19 1:40 PM [employer] [facility] Comment: Direct and indirect bilirubin will not be reported when Total bilirubin result is <0.3 mg/dL Indocyanine Green (ICG) may cause falsely elevated bilirubin results. Total and direct bilirubin must not be measured from samples containing indocyanine green. Bilirubin Indirect 2023 1:40 PM [employer] [facility] Comment:Direct and indirect bilirubin will not be reported when Total bilirubin result is <0.3 mg/dL Tot Protein 7.7 6.4 - 8.3 gm/dL 09/16/2023 1:40 PM [employer] [facility] Alkaline Phosphatase 93 35 - 104 U/L 09/16/2023 1:40 PM [facility] Albumin Level 4.5 3.5 - 5.2 gm/dL 09/16/2023 1:40 PM [employer] [facility] AST 18 <=32 U/L 09/16/2023 1:40 PM [employer] [facility] ALT 18 <=33 U/L 09/16/2023 1:40 PM [facility] Blood Peripheral blood specimen / Unknown Venipuncture / Unknown 09/16/2023 12:47 PM [employer] 09/16/2023 12:59 PM [employer] Lizeth Brown APRN LAB BLOOD ORDERABL ES [facility] Unless otherwise noted, all lab tests performed by: Division of Pathology and Laboratory Medicine [address] [place] [address] [place] [phone] * Hepatitis B Surface Antibody (09/16/2023 12:47 PM [employer]) Pathologist [facility] HBsAb Non Reactive 09/16/2023 2:17 PM [employer] [facility] Blood Peripheral blood specimen / Unknown Venipuncture / Unknown 09/16/2023 12:47 PM [employer] 09/16/2023 12:59 PM [employer] Narrative [facility] - 09/16/2023 2:17 PM [employer] Vaccinated individual: Reactive Unvaccinated individual: Non-Reactive Lizeth Brown APRN LAB BLOOD ORDERABL ES [facility] Unless otherwise noted, all lab tests performed by: Division of Pathology and Laboratory Medicine [address] [place] [address] * (ABNORMAL) Urinalysis w/Microscopic if Indicated (09/16/2023 12:47 PM [employer]) Pathologist [facility] Urine Appearance Clear Clear 09/16/19 1:51 PM [employer] [facility] Urine Color Straw Colorless, Straw, Yellow, Dark Yellow, Straw-Yello w 09/16/2023 1:51 PM [employer] [facility] Urine Specific [place] 1.020 1.003 - 1.035 09/16/2023 1:51 PM [facility] Urine pH 7.0 5.0 - 8.0 09/16/2023 1:51 PM [facility] Urine Glucose Negative Negative mg/dL 09/16/2023 1:51 PM [facility] Urine Ketones Negative Negative mg/dL 09/16/2023 1:51 PM [facility] Urine Blood Negative Negative 09/16/2023 1:51 PM [employer] [facility] Urine Protein Negative Negative mg/dL 09/16/2023 1:51 PM [facility] Urine Bilirubin Negative Negative 1:51 PM [facility] Urine Urobilinogen Negative Negative 09/16/2023 1:51 PM [employer] [facility] Urine Nitrite Negative Negative 09/16/2023 1:51 PM [facility] Urine Leukocyte Esterase Moderate(A) Negative 09/16/2023 1:51 PM [employer] [facility] Urine Voided urine specimen / Unknown Non-blood Collection / Unknown 09/16/2023 12:47 PM [employer] 09/16/2023 12:58 PM [employer] Narrative [facility] - 09/16/2023 1:51 PM [employer] Some reporting parameters within the Urinalysis test have changed due to the implementation of new instrumentation in the [facility], allowing greater sensitivity of measurement. Urinalysis results reported by the [facility] using existing instrumentation, as well as Urinalysis testing performed manually or by back-up methodology at the [facility], will remain relatively unchanged. New reporting parameters and units will now be reported for all campuses. Lizeth Brown APRN URINE ORDERABLES Performing Organization Address City/[facility]/ZIP Co de Phone Number [facility] Unless otherwise noted, all lab tests performed by: Division of Pathology and Laboratory Medicine [address] [place] [phone] * BUN (09/16/2023 12:47 PM [employer]) BUN 12 6 - 23 mg/dL 09/16/2023 1:40 PM [employer] [facility] Blood Peripheral blood specimen / Unknown Venipuncture / Unknown 09/16/2023 12:47 PM [employer] 09/16/2023 12:59 PM [employer] Lizeth Brown APRN LAB BLOOD ORDERABL ES Performing Organization Address [facility]/ZIP Co de Phone Number [facility] Unless otherwise noted, all lab tests performed by: Division of Pathology and Laboratory Medicine [address] [place] [id number] * Phosphorus Level (09/16/2023 12:47 PM [employer]) Phosphorus Level 3.2 2.5 - 4.5 mg/dL 09/16/2023 1:40 PM [employer] [facility] Blood Peripheral blood specimen / Unknown Venipuncture / Unknown 09/16/2023 12:47 PM [employer] 09/16/2023 12:59 PM [employer] Lizeth Brown APRN LAB BLOOD ORDERABL ES [facility] Unless otherwise noted, all lab tests performed by: Division of Pathology and Laboratory Medicine [address] [place] [phone] * Magnesium Level (09/16/2023 12:47 PM [employer]) Magnesium Level 2.1 1.6 - 2.6 mg/dL 09/16/2023 1:40 PM [employer] [facility] Blood Peripheral blood specimen / Unknown Venipuncture / Unknown 09/16/2023 12:47 PM [employer] 09/16/2023 12:59 PM [employer] Lizeth Minero CMV DRIVER LAB BLOOD ORDERABL ES Performing Organization Address [facility]/ZIP Co de Phone Number [facility] Unless otherwise noted, all lab tests performed by: Division of Pathology and Laboratory Medicine [address] [place] [phone] * LDH (09/16/2023 12:47 PM [employer]) LDH 183 135 - 214 U/L 09/16/2023 1:45 PM [employer] [facility] Blood Peripheral blood specimen / Unknown Venipuncture / Unknown 09/16/2023 12:47 PM [employer] 09/16/2023 12:59 PM [employer] Narrative [facility] - 09/16/2023 1:45 PM [employer] Results greater than 1651 U/L may not be reliable due to matrix effect with extended dilution as it exceeds the physician practice coordinator's recommended limit. Caution should be exercised when interpreting such values and done in conjunction with clinical context. Lizeth Brown CMV DRIVER LAB BLOOD ORDERABL ES [facility] Unless otherwise noted, all lab tests performed by: Division of Pathology and Laboratory Medicine [address] [place] [phone] * Creatinine (09/16/2023 12:47 PM [employer]) Creatinine 0.80 0.51 - 0.95 mg/dL 09/16/2023 1:40 PM [employer] [facility] eGFR 100 >=60 mL/min/1.7 3 sq. m 09/16/2023 1:40 PM [employer] [facility] Comment: The eGFRcr is calculated with the 2020 CKD-EPI creatinine equation using creatinine, patient's age, and sex for adults 18 years of age and older. Other factors, especially muscle mass, may affect accuracy and need to be considered. According to the Kidney Disease: Improving Global Outcomes (KDIGO) CKD Work Group 2012 Clinical Practice Guideline, chronic kidney disease (CKD) is defined as the abnormalities of kidney structure or function, present for more than 3 months, with implications for health. CKD should be classified by cause, GFR category, and albuminuria category. KDIGO guidelines provide the following GFR categories. Stage / Description / GFR mL/min/1.73 m2: G1* / Normal or high / >= 90 G2* / Mildly decreased / 60-89 G3a / Mildly to moderately decreased / 45-59 G3b / Moderately to severely decreased / 30-44 G4 / Severely decreased / 15-29 G5 / Kidney failure / <15 *In the absence of evidence of kidney damage, neither G1 nor G2 fulfill criteria for CKD. Blood Peripheral blood specimen / Unknown Venipuncture / Unknown 09/16/2023 12:47 PM [employer] 09/16/2023 12:59 PM [employer] Lizeth Brown APRN LAB BLOOD ORDERABL ES [facility] Unless otherwise noted, all lab tests performed by: Division of Pathology and Laboratory Medicine [address] [place] [phone] * Calcium Level (09/16/2023 12:47 PM [employer]) Calcium Level Total 9.7 8.2 - 10.2 mg/dL 09/16/2023 1:40 PM [employer] [facility] Blood Peripheral blood specimen / Unknown Venipuncture / Unknown 09/16/2023 12:47 PM [employer]PER[employer] 09/16/2023 12:59 PM [employer] Lizeth Brown CMV DRIVER LAB BLOOD ORDERABL ES Performing Organization Address [facility]/ZIP Co de Phone Number [facility] Unless otherwise noted, all lab tests performed by: Division of Pathology and Laboratory Medicine [address] [place] [id number] * Electrolyte Panel (09/16/2023 12:47 PM [employer]) Sodium Level 139 136 - 145 mmol/L 09/16/2023 1:40 PM [employer] [facility] Potassium Level 3.9 3.4 - 4.5 mmol/L 09/16/2023 1:40 PM [employer] [facility] Chloride 102 98 - 107 mmol/L 09/16/2023 1:40 PM [employer] [facility] CO2 26 22 - 29 mmol/L 09/16/2023 1:40 PM [employer] [facility] Anion Gap 11 4 - 14 mmol/L 09/16/2023 1:40 PM [employer] [facility] Blood Peripheral blood specimen / Unknown Venipuncture / Unknown 09/16/2023 12:47 PM [employer] 09/16/2023 12:59 PM [employer]PER[employer] Lizeth Brown APRN LAB BLOOD ORDERABL ES Performing Organization Address [facility] Co de Phone Number [facility] Unless otherwise noted, all lab tests performed by: Division of Pathology and Laboratory Medicine [address] [place] [id number] * OSI MRI ABDOMEN (08/28/2023 12:46 PM [employer]) Anatomical Region Laterality Modality Abdomen Other 09/17/2023 2:22 PM [employer] Impressions 09/17/2023 2:25 PM [employer] SUPER[employer]OR Impression: Mass within the right renal interpole anteriorly is of concern for a renal cell cancer.. ACTIONABLE ITEMS/RECOMMENDATIONS*: None. Narrative 09/17/2023 2:25 PM [employer]PER[employer]OR Examination: OSI MRI ABDOMEN on 08/28/2023 12:46 PM. Clinical History: Renal mass. Indication: Other:, waiting on imaging of 08/20/22 mri abd for comparison from [facility]; please provide bosniak class if applicable. Comparison: None available. Findings: The entire liver was not imaged. No focal hepatic lesions are noted to suggest malignancy on the images liver. There is no intrahepatic or extrahepatic biliary ductal dilation. The gallbladder is normal. The spleen, the adrenal glands and the pancreas are normal. The kidneys demonstrate symmetrical enhancement and there is no evidence of hydronephrosis. A mass is noted within the right renal interpolar region (sequence 9 image 15) measures 1.4 x 1.0 cm and is of concern for a renal cell cancer. There is no retroperitoneal adenopathy. No bony metastatic lesions are noted. Procedure Note Francie Chin MD - 09/17/2023 Examination: OSI MRI ABDOMEN on 08/28/2023 12:46 PM. Clinical History: Renal mass. Indication: Other:, waiting on imaging of 08/20/22 mri abd for comparisonfrom [facility]ahaoism; please provide bosniak class if applicable. Comparison: None available. Findings: The entire liver was not imaged. No focal hepatic lesions arenoted to suggest malignancy on the images liver. There is no intrahepaticor extrahepatic biliary ductal dilation. The gallbladder is normal. The spleen, the adrenal glands and the pancreas are normal. The kidneys demonstrate symmetrical enhancement and there is no evidenceof hydronephrosis. A mass is noted within the right renal interpolarregion (sequence 9 image 15) measures 1.4 x 1.0 cm and is of concern for arenal cell cancer. There is no retroperitoneal adenopathy. No bony metastatic lesions arenoted. IMPRESSION: Impression: Mass within the right renal interpole anteriorly is of concernfor a renal cell cancer.. ACTIONABLE ITEMS/RECOMMENDATIONS*: None. Lizeth Brown APRN IMG OUTSIDE IMAGE ORDERABLES after 10/30/2022 Care Teams Parking Enforcement Officer Relationship Specialty Start Date End Date Jeffrey Bauer MD [address] [place] [address] PCP - External Referring General Surgery 09/08/23 Lizeth Brown APRN [address] [place] [id number] PCP - General Nurse Practitioner 09/11/23
[2023-10-30] MEDS ORDERED: ONDANSETRON 4 MG/2 ML VIAL ONE (16:55)
[2023-10-30] MEDS ORDERED: MORPHINE 4 MG/ML SYR ONE (16:56)
[2023-10-30 17:06] LABS: Absolute Basophils 0.1 K/uL (0-0.5); Absolute Eosinophils 0.3 K/uL (0-0.5); Absolute Lymphocytes (CBC) 1.8 K/uL (0.7-4.9); Absolute Monocytes 0.6 K/uL (0.1-1.3); Absolute Neutrophil 8.6 K/uL (1.8-8.0); Basophils % 0.9 % (0-1.3); Eosinophils % 2.9 % (0-4.4); Hemoglobin 12.5 g/dL (12.0-15.0); Lymphocytes % 15.9 % (15.3-44.8); MCH 27.8 pg (27.0-35.0); MCHC 33.9 g/dL (32.0-36.0); MCV 82.1 fL (80-100); MPV 7.3 fL (7.6-11.3); Monocytes % 5.5 % (3.3-12.3); Neutrophils % 74.8 % (41.7-73.7); Nucleated Red Blood Cells % 0.1 % (0-0); Platelets 350 thou/uL (152-406); RBC Red Blood Cell Count 4.51 M/uL (3.86-4.86); Red Cell Distribution Width 14.5 % (12.1-15.2)
--- NOTE | 2023-10-30 17:15 | RAD REPORT ---
EXAM DESCRIPTION: RAD - Chest Single View - 10/30/2023 5:08 pm CLINICAL HISTORY: CHEST PAIN Chest pain. COMPARISON: No comparisons FINDINGS: Portable technique limits examination quality. The lungs are grossly clear. The heart is normal in size. No displaced fractures. IMPRESSION: No acute intrathoracic process suspected.
[2023-10-30 17:17] LABS: Specific Gravity 1.018 (1.005-1.030)
[2023-10-30 17:25] LABS: ALT/SGPT 25 U/L (13-56); AST/SGOT 17 U/L (15-37); Albumin 3.3 g/dL (3.4-5.0); Albumin/Globulin Ratio 0.7 (1.1-1.8); Alkaline Phosphatase 87 U/L (45-117); Anion Gap 9.7 mEq/L (5.0-15.0); BUN Blood Urea Nitrogen 13 mg/dL (7-18); Bicarbonate 25 mEq/L (21-32); Bilirubin Direct 0.1 mg/dL (0-0.2); Bilirubin Indirect, Calculated 0.2 mg/dL (0.2-0.8); Bilirubin Total 0.3 mg/dL (0.2-1.0); Globulin 4.7 g/dL (2.3-3.5); Glomerular Filtration Rate 91 ml/min (=/>90); Glucose Level 101 mg/dL (74-106); Lipase 34 U/L (13-75); Potassium 3.7 mEq/L (3.5-5.1); Sodium Level 137 mEq/L (136-145)
[2023-10-30 17:27] LABS: Troponin High Sensitivity < 3.0 pg/mL (<58.9)
[2023-10-30 17:31] LABS: Specific Gravity 1.018 (1.005-1.030); Sqamous Epithelial <5 /HPF (None Seen); Urine Bacteria 20-50 /HPF (<20); Urine Bilirubin NEGATIVE (Negative); Urine Blood 1+ (Negative); Urine Clarity Extremely Turbid (Clear); Urine Color Light-Yellow (Yellow); Urine Culture Reflex Order NOT NEEDED; Urine Glucose NEGATIVE (Negative); Urine Ketones NEGATIVE (Negative); Urine Microscopic Reflex YN ORDER UMIC; Urine Mucus Slight /HPF (None Seen); Urine Nitrite NEGATIVE (Negative); Urine Protein NEGATIVE (Negative); Urine RBC <5 /HPF (None Seen); Urine Urobilinogen Normal (Normal)
--- NOTE | 2023-10-30 18:04 | RAD REPORT ---
EXAM DESCRIPTION: CTAbdomen Pelvis W Contrast - 10/30/2023 5:56 pm CLINICAL HISTORY: Abdominal pain. ABD PAIN COMPARISON: No comparisons TECHNIQUE: Biphasic CT imaging of the abdomen and pelvis was performed with 100 ml non-ionic IV cont rast. All CT scans are performed using dose optimization technique as appropriate and may include automated exposure control or mA/KV adjustment according to patient size. FINDINGS: The lung bases are clear.Cholecystectomy clips. The liver, spleen, pancreas, adrenal glands and kidneys are within normal limits. No bowel obstruction, free air, free fluid or abscess. Appendectomy. No evidence of significant lym phadenopathy. No suspicious bony findings. IMPRESSION: No acute intra-abdominal or pelvic finding.
--- NOTE | 2023-10-30 18:23 | ER ---
Nurse's Notes [facility] Name: Ericka Garland Age: 33 yrs Sex: Female : 1990 Arrival Date: 10/30/2023 Time: 16:24 Bed 12 Private MD: Diagnosis: Chest pain, unspecified;Upper abdominal pain, unspecified Presentation: 10/29 16:27 Chief complaint: Burning chest pain that started at about noon, became tight and sharp hb 90 mins ago. Cholecystectomy 10/[address] Ferrer. Coronavirus screen: At this time, the client does not indicate any symptoms associated with coronavirus-19. Ebola Screen: No symptoms or risks identified at this time. Initial Sepsis Screen: Does the patient meet any 2 criteria? No. Patient's initial sepsis screen is negative. Does the patient have a suspected source of infection? No. Patient's initial sepsis screen is negative. Risk Assessment: Do you want to hurt yourself or someone else? Patient reports no desire to harm self or others. Onset of symptoms was October 30, 2023. 16:27 Method Of Arrival: Ambulatory hb 16:27 Acuity: FRANDY 3 hb Triage Assessment: 16:33 General: Appears in no apparent distress. Behavior is calm, cooperative. Pain: Pain hb currently is 4 out of 10 on a pain scale. Neuro: Level of Consciousness is awake, alert, obeys commands, Oriented to person, place, time, situation. Cardiovascular: Reports chest pain, Patient's skin is warm and dry. Respiratory: Respiratory effort is even, unlabored, Respiratory pattern is regular, symmetrical. Historical: - Allergies: 16:30 No Known Allergies; hb - Home Meds: 16:30 levothyroxine oral [Active]; Wellbutrin Oral [Active]; Zonisade oral [Active]; hb - PMHx: 16:30 Migraine; Hypothyroidism; hb - PSHx: 16:33 Cholecystectomy; hb 16:35 section; Appendectomy; hb - Immunization history:: Adult Immunizations up to date. - Infectious Disease History:: Denies. - Social history:: Smoking status: Patient reports the use of cigarette tobacco products. Screenin:01 [facility] ED Fall Risk Assessment (Adult) History of falling in the last 3 months, hb including since admission No falls in past 3 months (0 pts) Confusion or Disorientation No (0 pts) Intoxicated or Sedated No (0 pts) Impaired Gait No (0 pts) Mobility Assist Device Used No (0 pt) Altered Elimination No (0 pt) Score/Fall Risk Level 0 - 2 = Low Risk Oriented to surroundings, Maintained a safe environment, Educated pt \\T\\ family on fall prevention, incl call for assistance when getting out of bed. Abuse screen: Denies threats or abuse. Denies injuries from another. Nutritional screening: No deficits noted. Tuberculosis screening: No symptoms or risk factors identified. Assessment: 17:01 General: Appears in no apparent distress. Behavior is calm, cooperative. Pain: hb Complains of pain in xiphoid area and mid-sternal area Pain radiates to diaphragm Pain began 4 hours ago. Neuro: Level of Consciousness is awake, alert, obeys commands, Oriented to person, place, time, situation. Cardiovascular: Patient's skin is warm and dry. Rhythm is regular. Respiratory: Respiratory effort is even, unlabored, Respiratory pattern is regular, symmetrical. GI: No signs and/or symptoms were reported involving the gastrointestinal system. : No signs and/or symptoms were reported regarding the genitourinary system. EENT: No signs and/or symptoms were reported regarding the EENT system. Derm: Skin is pink, warm \\T\\ dry. Musculoskeletal: No signs and/or symptoms reported regarding the musculoskeletal system. 17:45 Reassessment: Patient is alert, oriented x 3, equal unlabored respirations, skin aa5 warm/dry/pink. Pt sitting up in bed, states no complaints at this time. . 18:35 Reassessment: To bedside to d/c pt home, pt sitting up in bed, appears uncomfortable, cm10 pt states "I am having bad chest pain again like I was before I got here". was notified. . 19:08 Reassessment: Patient is alert, oriented x 3, equal unlabored respirations, skin cm10 warm/dry/pink. Patient states symptoms have not improved. 20:03 Reassessment: Patient and/or family updated on plan of care and expected duration. Pain ha1 level reassessed. Patient is alert, oriented x 3, equal unlabored respirations, skin warm/dry/pink. Patient states feeling better. Patient states symptoms have improved. Vital Signs: 16:27 BP 159 / 105; Pulse 92; Resp 16; Temp 98.3; Pulse Ox 100% on R/A; Weight 93.44 kg; hb Height 5 ft. 3 in. ; Pain 4/10; 19:00 BP 147 / 88; Pulse 79; Resp 16 S; Pulse Ox 100% on R/A; cm10 20:03 BP 143 / 90; Pulse 82; Resp 18 S; Temp 97.9(T); Pulse Ox 99% on R/A; ha1 16:27 Body Mass Index 36.49 (93.44 kg, 160.02 cm) hb 16:27 Pain Scale: Adult hb ED Course: 16:26 Patient arrived in ED. im 16:30 Triage completed. hb 16:31 Tam Wesley MD is Attending Physician. ec2 16:31 EKG done, by ED staff, reviewed by Tam Wesley MD. hb 16:34 Arm band placed on. hb 16:43 Luisa Landeros RN is Primary Nurse. mb9 16:58 Initial lab(s) drawn, by sc, sent to lab. Inserted saline lock: 20 gauge in right aa5 antecubital area, using aseptic technique. Blood collected. 17:01 Patient has correct armband on for positive identification. Provided Education on: hb tests, result times. Client placed on continuous cardiac and pulse oximetry monitoring. NIBP monitoring applied. dependency case manager on. Pulse ox on. NIBP on. 17:01 Response to oxygen therapy:. hb 17:02 Radiology exam delayed due to patient is not appropriately dressed for the exam at this az time. 17:05 Urine collected: clean catch specimen, clear, sent to lab. aa5 17:09 XRAY Chest (1 view) In Process Unspecified. EDMS 17:58 CT Abd/Pelvis - IV Contrast Only In Process Unspecified. EDMS 18:50 EKG done, by ED staff, reviewed by Tam Wesley MD. aa5 18:50 repeat troponin drawn and sent to lab. aa5 19:57 Jovani Diaz MD is Referral Physician. ec2 20:04 No provider procedures requiring assistance completed. IV discontinued, intact, ha1 bleeding controlled, No redness/swelling at site. Pressure dressing applied. Administered Medications: 17:08 Not Given (Patient Refused): ondansetron 4 mg IVP once; over 2 minutes aa5 17:08 Not Given (Patient Refused): morphineor iv 4 mg IVP once over 4 mins aa5 19:00 Drug: Famotidine IVP 20 mg IVP once; dilute with 10 mL 0.9% NaCl; give over 2 minutes cm10 Route: IVP; Site: right antecubital; 19:08 Follow up: Response: No adverse reaction cm10 19:08 Drug: GI Cocktail without - (Maalox PO 30 ml, Lidocaine Mucous Membrane 2 % 15 cm10 ml) PO once Route: PO; 19:09 Not Given (Physician Discretion): alum-mag hydroxide-simethsuspension (200 mg-200 mg-20 cm10 mg/5 ml) 30 ml PO once 19:09 Not Given (Physician Discretion): viscous lidocaineliquid (4 %) 10 ml Mucous Membrane cm10 once Medication: 17:01 VIS not applicable for this client. hb Outcome: 18:22 Discharge ordered by . ec2 19:48 Discharge ordered by MD. ec2 20:04 Discharged to home ambulatory, ha1 20:04 Condition: stable 20:04 Discharge instructions given to patient, family, Instructed on discharge instructions, follow up and referral plans. medication usage, Demonstrated understanding of instructions, follow-up care, medications, Prescriptions given X 1, 20:05 Patient left the ED. ha1 Signatures: Dispatcher [employer] Leslie Ruvalcaba RN RN aa5 Kelly Zendejas RN RN Kalee Martinez Heidy, RN RN ha1 Luisa Landeros RN RN mb9 Jana Augustine Clarissa, RN RN cm10 Tam Wesley MD MD ec2 Corrections: (The following items were deleted from the chart) 16:34 16:27 Chief complaint: Burning chest pain that started at about noon, became tight and hb sharp 90 mins ago. hb
--- NOTE | 2023-10-30 18:23 | EDPHYS ---
Physician Documentation [facility] Name: Ericka Garland Age: 33 yrs Sex: Female : 1990 Arrival Date: 10/30/2023 Time: 16:24 Bed 12 Private MD: ED Physician Tam Wesley HPI: 10/29 16:37 This 33 yrs old Female presents to ER via Ambulatory with complaints of Chest ec2 Pain. 16:37 Patient arrives today for evaluation of chest pain. Patient reports some chest pain ec2 that started earlier this morning. Patient reports no exertional component. No specific alleviating or exacerbating factors. Reports history of recent cholecystectomy as recently as 1.5 weeks ago. Patient reports no nausea or vomiting. Denies any fevers or chills.. Historical: - Allergies: 16:30 No Known Allergies; hb - Home Meds: 16:30 levothyroxine oral [Active]; Wellbutrin Oral [Active]; Zonisade oral [Active]; hb - PMHx: 16:30 Migraine; Hypothyroidism; hb - PSHx: 16:33 Cholecystectomy; hb 16:35 section; Appendectomy; hb - Immunization history:: Adult Immunizations up to date. - Infectious Disease History:: Denies. - Social history:: Smoking status: Patient reports the use of cigarette tobacco products. ROS: 16:37 Constitutional: as per hpi ec2 Exam: 16:37 Constitutional: GEN: NAD Head: atraumatic Eyes: EOMI Ears: External ears are ec2 normal. CV: regular rate LUNGS: no respiratory distress ABD: non-distended, tender in the epigastrium, no guarding, not rigid SKIN: no evidence of rashes MSK: no evidence of trauma NEURO: moves all extremities equally Vital Signs: 16:27 BP 159 / 105; Pulse 92; Resp 16; Temp 98.3; Pulse Ox 100% on R/A; Weight 93.44 kg; hb Height 5 ft. 3 in. ; Pain 4/10; 19:00 BP 147 / 88; Pulse 79; Resp 16 S; Pulse Ox 100% on R/A; cm10 20:03 BP 143 / 90; Pulse 82; Resp 18 S; Temp 97.9(T); Pulse Ox 99% on R/A; ha1 16:27 Body Mass Index 36.49 (93.44 kg, 160.02 cm) hb 16:27 Pain Scale: Adult hb MDM: 16:35 Patient medically screened. ec2 16:37 Data reviewed: vital signs. ED course: Patient arrives today for evaluation of chest ec2 pain. Examination remarkable for tender abdomen otherwise reassuring examination. Will obtain lab work, EKG, chest x-ray, urine studies. Evaluating for intra-abdominal process, ACS, doubt PE or dissection.. 16:38 ED course: EKG independently reviewed and interpreted by me, shows normal sinus rhythm, ec2 rate of 93, no acute ST segment elevations, nonconcerning intervals.. 17:33 ED course: CBC is reassuring. Urine is pertinent for leuk esterase, some bacteria ec2 present. Will defer treatment for this. Metabolic profile is reassuring. Troponin within normal ranges. Chest x-ray shows no acute intrathoracic process. Pending CT imaging. . 18:22 ED course: CT imaging shows no acute intra-abdominal process. Will discharge home, no ec2 evidence of ACS or intra-abdominal infection. Return precautions given. Possible GERD or reflux. 18:41 ED course: Patient with recurrence of symptoms, she initially declined her morphine, ec2 will give her GI cocktail and lidocaine. Suspect reflux, will obtain repeat EKG and troponin as well. 18:49 ED course: Repeat EKG independently reviewed and interpreted by me, shows normal sinus ec2 rhythm, rate of 85, no acute ST segment elevations, nonconcerning intervals. . 19:47 ED course: Will discharge home, have patient follow-up with GI. Return precautions ec2 given. 10/29 16:36 Order name: Basic Metabolic Panel; Complete Time: 17:33 ec2 10/29 16:36 Order name: CBC with Diff; Complete Time: 17:33 ec2 10/29 16:36 Order name: Troponin HS; Complete Time: 17:33 ec2 10/29 16:36 Order name: Lipase; Complete Time: 17:33 ec2 10/29 16:36 Order name: Test, Urine; Complete Time: 17:33 ec2 10/29 16:36 Order name: Urinalysis w/ reflexes; Complete Time: 17:33 ec2 10/29 16:36 Order name: LFT's; Complete Time: 17:33 ec2 10/29 18:41 Order name: Troponin High Sensitivity; Complete Time: 19:44 ec2 10/29 16:36 Order name: XRAY Chest (1 view); Complete Time: 17:33 ec2 10/29 16:36 Order name: CT Abd/Pelvis - IV Contrast Only; Complete Time: 18:21 ec2 10/29 16:36 Order name: EKG; Complete Time: 16:37 ec2 10/29 16:36 Order name: Cardiac monitoring; Complete Time: 16:58 ec2 10/29 16:36 Order name: EKG - Nurse/Tech; Complete Time: 16:41 ec2 10/29 16:36 Order name: IV Saline Lock; Complete Time: 16:58 ec2 10/29 16:36 Order name: Labs collected and sent; Complete Time: 16:58 ec2 10/29 16:36 Order name: O2 Per Protocol; Complete Time: 16:51 ec2 10/29 16:36 Order name: O2 Sat Monitoring; Complete Time: 16:51 ec2 10/29 16:36 Order name: NPO; Complete Time: 16:51 ec2 10/29 18:41 Order name: EKG - Nurse/Tech; Complete Time: 18:50 ec2 Administered Medications: 17:08 Not Given (Patient Refused): ondansetron 4 mg IVP once; over 2 minutes aa5 17:08 Not Given (Patient Refused): morphineor iv 4 mg IVP once over 4 mins aa5 19:00 Drug: Famotidine IVP 20 mg IVP once; dilute with 10 mL 0.9% NaCl; give over 2 minutes cm10 Route: IVP; Site: right antecubital; 19:08 Follow up: Response: No adverse reaction cm10 19:08 Drug: GI Cocktail without - (Maalox PO 30 ml, Lidocaine Mucous Membrane 2 % 15 cm10 ml) PO once Route: PO; 19:09 Not Given (Physician Discretion): alum-mag hydroxide-simethsuspension (200 mg-200 mg-20 cm10 mg/5 ml) 30 ml PO once 19:09 Not Given (Physician Discretion): viscous lidocaineliquid (4 %) 10 ml Mucous Membrane cm10 once Disposition Summary: 10/30/23 19:48 Discharge Ordered Notes: Location: Home(10/30/23 19:48) ec2 Condition: Stable(10/30/23 19:48) ec2 Diagnosis - Chest pain, unspecified ec2 - Upper abdominal pain, unspecified(10/30/23 19:48) ec2 Followup: ec2 - With: Private Physician - When: - Reason: Re-evaluation by your physician Followup: ec2 - With: Jovani Diaz MD - When: - Reason: Recheck today's complaints Discharge Instructions: - Discharge Summary Sheet ec2 - Nonspecific Chest Pain, Adult, [id number] ec2 Forms: - Medication Reconciliation Form ec2 - Thank You Letter ec2 - Antibiotic Education ec2 - Prescription Opioid Use ec2 - Patient Portal Instructions ec2 - Leadership Thank You Letter ec2 Prescriptions: - Pepcid 20 mg Oral Tablet - take 1 tablet ORAL route every 12 hours for 10 days; 20 tablet; Refills: 0, ec2 Product Selection Permitted Signatures: Dispatcher [employer] EDKelly Guzman RN RN Pam Ferrer RN RN cm10 Tam Wesley MD MD ec2 Leslie Almanzar RN aa5 Corrections: (The following items were deleted from the chart) 18:41 18:22 Home ec2 ec2 18:41 18:22 Stable ec2 ec2 18:41 18:22 Upper abdominal pain, unspecified ec2 ec2 18:42 18:42 Troponin High Sensitivity+[id number].BRZ ordered. EDGA EDMS
[2023-10-30] MEDS ORDERED: FAMOTIDINE 20 MG/2 ML VIAL IV ONE (18:55)
[2023-10-30] MEDS ORDERED: MAGNES/ALUMIN/SIMET 30ML UCUP ONE (18:55)
[2023-10-30] MEDS ORDERED: LIDOCAINE VISCOUS 2% 10ML ORAL SOLN ONE (18:55)
[2023-10-30 23:24] VITALS: BP 143/90; TEMP 97.9; O2SAT 99
--- NOTE | 2023-10-31 11:54 | EKG ---
Test Date: 2023-10-30 Test Time: 16:32:14 Wheel And Axle Inspector: BETO MEASUREMENT RESULTS: Intervals: Rate: 93 HI: 130 QRSD: 90 QT: 358 QTc: 445 [place]: P: 16 HI: 130 QRS: 49 T: 66 INTERPRETIVE STATEMENTS: Normal sinus rhythm Normal ECG No previous ECG available for comparison Electronically Signed On 10-31-23 11:53:17 CDT by Rambo Rod
--- NOTE | 2023-11-03 12:52 | EKG ---
Test Date: 2023-10-30 Test Time: 18:45:43 Mechanical Engineering Lecturer: BETO MEASUREMENT RESULTS: Intervals: Rate: 85 MS: 112 QRSD: 90 QT: 376 QTc: 447 [place]: P: 15 MS: 112 QRS: 13 T: 35 INTERPRETIVE STATEMENTS: Normal sinus rhythm Normal ECG Compared to ECG 10/30/2023 16:32:14 No significant changes Electronically Signed On 11-03-23 12:43:39 CDT by Rambo Rod
== END 2023-10-30 20:05 | disposition home or self-care (01) ==
LOC: ER 16:24
DX: R07.9 Chest pain, unspecified (principal); R10.10 Upper abdominal pain, unspecified; E03.9 Hypothyroidism, unspecified; Z90.49 Acquired absence of other specified parts of digestive tract; Z72.0 Tobacco use
CPT/HCPCS: 93005; 85025; 81001; 80048; 36415; 81025; 80076; 84484 ×2; 83690; 74177; 71045; 96374; 99285; Q9967; J2405